=== PATIENT | male | born 1955 | race Caucasian/White ===

== ENCOUNTER 2016-12-09 08:23 | Inpatient (IN) | payer OTHER ==
[2016-12-09] VITALS (11 sets, daily range): BP systolic 98–133; BP diastolic 61–76; PULSE 56–88; RESP 11–20; O2SAT 97–100
[~2016-12-09] VITALS: Ht 182.9 cm; Wt 109.5 kg
[2016-12-09] MEDS: Lactated Ringer's 1,000 ML IV SCH ×3 (05:00→09:00)
[~2016-12-09 08:23] MED LIST: ARGI2000 PO; ASCO1TAB36 PO; ASPI-973 PO; Bupivacaine Liposome 1.3% 20 mL Inj INFILTRATE ONE; CHOL100045 PO; CeFAZolin Inj 2 GM in IV Premix 1 EACH IV ONE; DILT-17 PO; KRILL OIL PO; MAGN100T6 PO; MULT-1018 PO; SELE200T11 PO; SIMV20TA4 PO; TUMERIC PO; TUMERIC ROOT PO; VIT100TA PO; Vancomycin Inj 1,000 MG in IV Premix 1 EACH IV ONE; [UNRECOGNIZED DRUG - CODE] MC
[2016-12-09] MEDS ORDERED: Bupivacaine Liposome 1.3% 20 mL Inj ONE (10:25)
[2016-12-09] MEDS ORDERED: Dexamethasone 4 mg/mL Inj ONE (10:44)
[2016-12-09] MEDS ORDERED: Bupivacaine-MPF 0.75% 30 mL Inj ONE (10:44)
[2016-12-09] MEDS ORDERED: MetoCLOpramide 5 mg/mL 2 mL Inj ONE (10:44)
[2016-12-09] MEDS ORDERED: Ketamine 10 mg/mL 20 mL Inj ONE (10:44)
[2016-12-09] MEDS ORDERED: Lactated Ringer's 500 ML IV PRN (11:02)
[2016-12-09] MEDS ORDERED: Lactated Ringer's 1,000 ML IV SCH (11:02)
[2016-12-09] MEDS ORDERED: MetoCLOpramide 5 mg/mL 2 mL Inj IVPUSH PRN (11:05)
[2016-12-09] MEDS ORDERED: Dexamethasone 4 mg/mL Inj IVPUSH PRN (11:05)
[2016-12-09] MEDS ORDERED: EPHEDrine Sulfate 50 mg/mL Inj IVPUSH PRN (11:05)
[2016-12-09] MEDS ORDERED: Phenylephrine 10,000 mCg/mL Inj IVPUSH PRN (11:05)
[2016-12-09] MEDS ORDERED: HYDROmorphone 1 mg/mL Inj IVPUSH PRN ×2 (11:05→15:15)
[2016-12-09] MEDS ORDERED: Ondansetron 2 mg/mL 2 mL Inj IVPUSH PRN ×2 (11:05→13:15)
[2016-12-09] MEDS ORDERED: fentaNYL-PF 50 mCg/mL 2 mL Inj IVPUSH PRN (11:05)
[2016-12-09] MEDS ORDERED: Bupivacaine-MPF 0.5% W/EPI 30 mL Inj INFILTRATE ONE (12:30)
[2016-12-09] MEDS ORDERED: 0.9% Sodium Chloride 10 mL Inj INFILTRATE ONE (12:30)
[2016-12-09] MEDS ORDERED: Bupivacaine Liposome 1.3% 20 mL Inj INFILTRATE ONE (12:30)
[2016-12-09] MEDS ORDERED: Lactated Ringer's 1,000 ML IV ONE (13:02)
[2016-12-09] MEDS ORDERED: HYDROmorphone 2 mg/mL Inj IVPUSH PRN (13:15)
[2016-12-09] MEDS ORDERED: hydrOXYzine Pamoate 25 mg Capsule PO PRN (13:15)
[2016-12-09] MEDS ORDERED: Polyethylene Glycol (PEG) 17 Gm Powder PO PRN (13:15)
[2016-12-09] MEDS ORDERED: diphenhydrAMINE 25 mg Capsule PO PRN (13:15)
[2016-12-09] MEDS ORDERED: Acetaminophen IV 1,000 MG in IV Premix 1 EACH IV PRN (13:15)
[2016-12-09] MEDS ORDERED: Magnesium Hydroxide 10 mL Oral Concentration PO PRN (13:15)
--- NOTE | 2016-12-09 14:21 | DRSVH ---
PROCEDURE: X-RAY RIGHT KNEE, ONE OR TWO VIEWS ([id number]) INDICATIONS: post op TECHNIQUE: 2 views of the knee acquired. COMPARISON: [facility], CR, XR KNEE ARTHRITIC SERIES RT, 10/06/2016, 9:38. FINDINGS: Bones: Patient is status post knee joint arthroplasty. Hardware components are in expected position s with near-anatomic alignment. Visualized bony structures are intact. Soft tissues: Overlying postoperative changes are noted including joint effusion and gas as well sof t tissue edema and gas. IMPRESSION: 1. Expected postsurgical changes status post right knee arthroplasty. Dictated by: Mateusz Hercules M.D. on 12/09/2016 at 14:18 Approved by: Mateusz Hercules M.D. on 12/09/2016 at 14:19
--- NOTE | 2016-12-09 14:43 | PCM.ANEP1 ---
Post Anesthesia Phase 1 PACU Phase 1 Assessment Vital Signs Vital Signs Date Time Temp Pulse Resp B/P Pulse Ox O2 Delivery O2 Flow Rate FiO2 12/09/16 14:05 59 17 109/65 100 Room Air 12/09/16 14:01 59 19 105/61 100 Room Air 12/09/16 13:53 58 13 100/63 100 Room Air 12/09/16 13:40 56 12 98/71 100 Room Air 12/09/16 13:36 18 100 12/09/16 13:35 64 11 105/69 100 Room Air 12/09/16 13:30 36.3 64 13 100/64 100 Room Air 12/09/16 09:00 CPAP/BIPAP 12/09/16 09:00 36.1 65 18 133/72 99 Room Air Anesthetic Administered: Regional Block, SAB Level of Alertness: Awake, talking Pain: No Nausea or Vomiting: No Dermatome Level: L5,S1 (Foot) Artemio Preston MD Dec 09, 2016 14:43
--- NOTE | 2016-12-09 14:46 | PCM.HPANE ---
Patient Data Surgeon Admitting Provider: Attending Provider:Luc Cisse DO Primary Care Physician:Rukhsana Other Provider:Sharan Hidalgo Anesthesia Reason for Visit Right Knee Arthritis, Right Knee Mass RIGHT KNEE ARTHRITIS, RIGHT KNEE MASS Ht/WT & BMI Height (Feet): 6 Height (Inches): 0.00 Weight (Kilograms): 109.5 Body Mass Index 32.00 Allergies Coded Allergies: No Known Allergies (Unverified , 12/05/16) Past Anesthesia History Anesthesia History: Denies:: Anesthesia Reactions, Malignant Hyperthermia Diabetes History Hx Diabetes?: No MRSA MRSA: No Medications Blood Thinner: Aspirin Hypertension Medication: Yes (DILTIAZEM) Home Meds Incl Beta [place]: No Reported Medications Diltiazem ER 120 Mg Cap.er.[id number] Mg PO DAILY Ref 0 12/05/16 Cholecalciferol (Vitamin D3) (Vitamin D)1,000 Unit Capsule6,000 Unit PO DAILY # 1 BOTTLE Ref 0 12/05/16 Ubiquinol 500 Gm Tptaea355 Gm MC DIRECTED PRN HEALTH 12/05/16 [Tumeric/Tumeric Root] No Conflict Check2 Tablet PO DAILY 450MG/50MG 12/05/16 Simvastatin 20 Mg Hhtzqs65 Mg PO HS Ref 0 12/05/16 Selenomethionine (Selenium)200 Mcg Xqqtuv005 Mcg PO DAILY 12/05/16 Multivitamin (Multi Vitamin Daily)1 Each Tablet1 Each PO DAILY 30 Days Ref 0 12/05/16 Magnesium Citrate 100 Mg Jvtunf886 Mg PO DAILY 12/05/16 [Krill Oil] No Conflict Qvehc794 Mg PO DAILY 12/05/16 Ascorbate Calcium/Bioflavonoid (Anila-C 1,000 mg Tablet)1 Each Tablet1 Each PO DAILY ANILA-C W/ FLAVENOIDS 1000MG/200MG 12/05/16 Vit B Complex 100 Cmb #3/Herbs (Balanced B-100 Tablet)100 Mg Aycnlt103 Mg PO DAILY 12/05/16 Aspirin 81 Mg Llflhu08 Mg PO DAILY Ref 0 12/05/16 Arginine 2,000 Mg Powd.pack2,000 Mg PO DAILY 12/05/16 History History of ENT Problems?: Yes HEENT History: Positive for:: Hearing Problem Denture Type: None Teeth Condition: Within Normal Limits Other HEENT Pertinent History: S/P TONSILLECTOMY Hx of Heart Problems?: Yes Cardiovascular History: Positive for:: Atrial Fibrillation (HX OF TX W/ DILTIAZEM) Denies:: Heart Murmur Hypertension (HYPERLIPIDEMIA) Irregular Heartbeat (HX OF A FIB; CURRENTLY IN SINUS RHYTHM) Hx of Respiratory Problem?: Yes Respiratory History: Positive for:: Use of C-PAP Machine (FAWN+ W/ CPAP) Hx Neurologic Problems?: Yes Neurological History: Positive for:: Dizziness (HX OF BPPV) Hx of GI Problems?: No Gastrointestinal History: Positive for:: Heartburn Other GI Pertinent History: no Hx of Problems?: No Genitourinary History: Positive for:: Urinary Tract Infection HX of Peritoneal Dialysis: No Other Pertinent History: no Male Hx: Positive for:: Prostate Problems (BPH W/ HX OF ELEVATED PSA ( CURRENTLY 3.7 WNL) ) Denies:: Scrotal Mass Testicular Surgery Skin History: Positive for:: History Skin Disorders? (HX OF HIDRADENITIS & TINEA CURIS) Denies:: Pressure Ulcers Hx Musculoskeletal Problems?: Yes Musculoskeletal History: Positive for:: Degenerative Joint Osteoarthritis (RT KNEE W/ LOOSE JOINT BODIES=CURRENT PROBLEM) Hx of Psycho/Social Problems?: No Psycho Social History: Positive for:: Anxiety Hx Surgeries?: Yes (TONSILLECTOMY) Hx Any Other Health Problems?: Yes Other History: Denies:: Cancer Endocrine Disease Hospitalization Thyroid Disease History Blood Transfusions: Denies:: Blood Transfusions Hx Diabetes: No Hx Alcohol Use: YesAlcoholic Drinks Per Day: 1/DAYHave You Smoked inLast 12 mo : No Stop/Bang Treated for Sleep Apnea?: Yes Do You Have a CPAP Machine?: Yes S-Snoring: Do You Snore Loudly: Yes T-Tired: feel tired, fatigued: Yes O-Obsered: Observed not breath: Yes P-Blood Pressure: treated: No B- Body Mass Index > 35 kg/m2: No A- Age over 50: Yes N- Neck Large Circumference: Yes G- Gender Male: Yes FAWN Total Score: 6 FAWN Risk Assessment: High Risk, =/>3 Yes Risk Assessment Category Category 1A: Patient has history of documented sleep apnea, and HAS NOT received any narcotic, sedative or anesthesia administration during this stay. Category 1B: Patient has history of documented sleep apnea, and HAS received any narcotic , sedative or anesthesia administration during this stay Category 2: Patient has SUSPECTED Obstructive Sleep Apnea, and HAS received any narcotic , sedative or anesthesia administration during this stay. Category 3: Patient has SUSPECTED Obstructive Sleep Apnea and HAS NOT received narcotic, sedative or anesthesia administration during this stay. Category 4: Outpatient in Procedural Areas with known sleep apnea or who screen positive for High Risk via the STOP/BANG questionnaire. Exam Exam Vital Signs Vital Signs Date Time Temp Pulse Resp B/P Pulse Ox O2 Delivery O2 Flow Rate FiO2 12/09/16 14:05 59 17 109/65 100 Room Air 12/09/16 14:01 59 19 105/61 100 Room Air 12/09/16 13:53 58 13 100/63 100 Room Air 12/09/16 13:40 56 12 98/71 100 Room Air 12/09/16 13:36 18 100 12/09/16 13:35 64 11 105/69 100 Room Air 12/09/16 13:30 36.3 64 13 100/64 100 Room Air 12/09/16 09:00 CPAP/BIPAP 12/09/16 09:00 36.1 65 18 133/72 99 Room Air General Appearance: Oriented X3 HEENT/AIRWAY: MP 2 Lungs: Normal Air Movement Heart: Regular Rate/Rhythm Meds/Labs/Diagnostics Admission Meds Current Medications Lactated Ringer's 1,000 ml @ 120 mls/hr Q8H20M IV Last administered on 09:00; Start 12/09/16 at 05:00; Stop 12/09/16 at 13:19; Status DC Cefazolin Sodium/ Dextrose 2 gm/ Premix 50 ml @ 100 mls/hr PREOP ONCE IV Last administered on 12/09/16 10:58; Start 12/09/16 at 06:00; Stop 12/09/16 at 06:29; Status DC Vancomycin/0.9 % Sod Chloride 1000 mg/Premix 200 ml @ 133.333 mls/hr PREOP ONCE IV Last administered on 12/09/16 09:05; Start 12/09/16 at 06:00; Stop at 07:29; Status DC Tranexamic Acid/ Sodium Chloride (Cyklokapron Inj/ Normal Saline) 110 ml @ 660 mls/hr Q2H IV Last administered on 12/09/16 12:36; Start 12/09/16 at 06:00; Stop 12/09/16 at 08:09; Status DC Bupivacaine HCl (Exparel 1.3% Inj) 20 ml STK-MED ONCE INFILTRATE Last administered on 12/09/16 12:30; Start 12/09/16 at 12:30; Stop 12/09/16 at 11:42 ; Status DC Sodium Chloride (Normal Saline Inj) 20 ml STK-MED ONCE INFILTRATE Last administered on 12/09/16 12:30; Start 12/09/16 at 12:30; Stop 12/09/16 at 11:42 ; Status DC Bupivacaine HCl/ Epinephrine Bitart 30 ml 30 ml STK-MED ONCE INFILTRATE Last administered on 12/09/16 12:30; Start 12/09/16 at 12:30; Stop 12/09/16 at 11:42 ; Status DC Lactated Ringer's (Lr) 1,000 ml @ ud STK-MED ONCE IV Last administered on 12/09 13:02; Start 12/09/16 at 13:02; Stop 12/09/16 at 13:03; Status DC Plan Impression Patient chart reviewed, patient interviewed and anesthestic plan with risks, benefits, and alternatives discussed, and informed consent obtained. ASA Physical Status: ASA3 Severe Disease Anesthetic Plan: Regional Block, SAB Bene/Risks/Altern/Consents: Yes HP Complete Prior to Induction: Yes Artemio Preston MD Dec 09, 2016 14:46
[2016-12-09] MEDS: 0.9% Sodium Chloride 1,000 ML IV SCH ×2 (14:57→23:38)
--- NOTE | 2016-12-09 15:39 | OP ---
[address] [address] OPERATIVE REPORT PATIENT: KAILEY ALBARRAN : 1955 MR#: [id number] ADMIT: 12/09/2016 JOB ID: [id number] DATE OF SURGERY: 12/09/2016 PREOPERATIVE DIAGNOSIS(ES): Right knee degenerative joint disease. POSTOPERATIVE DIAGNOSIS(ES): Right knee degenerative joint disease with loose joint bodies. PROCEDURE: Right total knee arthroplasty with removal of loose joint bodies. SURGEON: Luc Cisse DO. MANIPULATIVE THERAPY SPECIALIST: Mimi Alaniz PA-C. A hand frame surgical elastic knitter was required for the successful completion of this procedure. INDICATIONS: The patient is a 61-year-old male with right knee severe degenerative arthritis who had failed conservative measures and wished to proceed with a total knee arthroplasty. He also had longstanding loose joint bodies which were bothersome to him and wished to have these removed at the same time. ANESTHESIA: Spinal. PROCEDURE IN DETAIL: Patient was brought to the operating room. He was given a preoperative antibiotic, 1 gram TXA preoperatively and spinal anesthetic. Surgical time-out was performed. The right knee was sterilely prepped and draped. A tourniquet was used for hemostasis. An incision was made longitudinally over the right anteromedial knee. Dissection was carefully carried through the subcutaneous tissue. Electrocautery was used for hemostasis. A split was then made in the quad tendon leaving cuff of tissue for repair. This was taken along the medial retinaculum and down onto the proximal medial tibial face. The patella was then everted and a small portion of the anterior horn medial meniscus as well as lateral meniscus and fat pad were removed. The loose joint bodies were then encountered and removed and sent to Pathology. There were a total of four loose joint bodies removed, the largest of which was about 5 or 6 cm in size. The femur was then instrumented with the intramedullary reamer and a 5 degree distal valgus cut angle was chosen with a 10 mm planned resection. The distal cutting guide was pinned into position and the cuts were performed and the femur was sized, felt to be a size 8. The tibia was then prepared with an extramedullary tibial cutting guide placed parallel to the long axis of the tibia. The tibial cut was performed, completed with an osteotome, and the cut surface was removed. The remainder of the medial lateral menisci were removed. The box cut was then performed with the box cutting guide and the femoral cuts were performed as well with the 3 degree external rotation guide. The knee was then trialed with the 8 femur, and I felt that a 7 tibia seemed to be good. Some additional medial release was performed. The patella was then resurfaced with a free hand type technique and then the knee was quite tight and so two additional millimeters of tibia were resected in order to facilitate exposure and some additional medial release was performed. We were then able to go to a size 7 thickness poly which allowed for full flexion, full extension with equal gaps medially and laterally. The tibia was prepared and upon preparation of the tibia I felt that the 7 was too small and decided to go with an 8 mobile bearing tibia, and a 8 femur. The femoral lugs were drilled. The bony surfaces were washed and dried, and the components were cemented into position beginning with the Depuy Attune RP 8 tibia followed by the Depuy Attune 8 femur, posterior stabilized, and a 7 mm thickness poly. A 41 mm patellar button was cemented into position. Had excellent tracking. All excess cement was removed. The tourniquet was then let down and the wound was copiously irrigated. Electrocautery was used for hemostasis and the wound was then closed with #1 Surgilon and 0 Vicryl to repair the capsule and quad tendon. The subcu was closed with 2-0 Vicryl and the skin was closed with a running subcuticular 3-0 V-Loc suture. A mixture of Exparel and Marcaine and saline was used as an adjunct local anesthetic. Sterile dressings were applied. Patient tolerated the procedure well. Blood loss was about 75 cc. POSTOPERATIVE PROTOCOL: Have the patient weightbear to tolerance. Use walker for ambulation and will plan to use Lovenox for DVT prophylaxis. He was given a prescription for [place] 7.5/325 for pain.
[2016-12-09] MEDS: Sodium Chloride LOK Flush 10 mL Syringe IV SCH ×2 (16:56→23:39)
--- NOTE | 2016-12-09 19:33 | NUR ---
Post op Pt arrived on OSC in bed at 1455, Bustillos in place, right leg in chato wrap, toes warm to touch, no complaints of pain or nausea. pt able to work with PT this evening. see post op assessment, care continued.
[2016-12-09] MEDS: CeFAZolin Inj 2 GM in IV Premix 1 EACH IV SCH (20:21)
[2016-12-09] MEDS: Senna-Docusate 8.6-50 mg Tablet PO SCH (20:22)
[2016-12-09] MEDS: Diltiazem CD 120 mg ER24 Capsule PO SCH (22:12)
[2016-12-09] MEDS: HYDROcodone-APAP 7.5-325 mg Tablet PO PRN (22:12)
[2016-12-10 00:22] VITALS: BP 96/60; PULSE 60; RESP 20; O2SAT 97
[2016-12-10] MEDS: CeFAZolin Inj 2 GM in IV Premix 1 EACH IV SCH (03:50)
[2016-12-10] MEDS: HYDROcodone-APAP 7.5-325 mg Tablet PO PRN ×4 (03:58→20:45)
--- NOTE | 2016-12-10 04:51 | NUR ---
PAIN Patient began complaining of mild pain to affected leg around bed time. Given one hydrocodone 7.5 and patient was able to sleep most of the night. One more dose given over night. Ortho checks WNL. Will continue to monitor.
[2016-12-10 05:25] VITALS: BP 101/61; PULSE 60; RESP 18; O2SAT 99
--- NOTE | 2016-12-10 06:32 | PCM.PNORTH ---
Subjective Date of Service: Dec 10, 2016 Visit Information: Reason for Visit Right Knee Arthritis, Right Knee Mass Surgery/Surgery Date RIGHT TOTAL KNEE 12/09/16 Post-Op Day # Date of Admission: Dec 09, 2016 at 14:44 Hospital Day # Subjective Found patient awake alert this morning and will position in bed. No complaints pain at this time. Discussed participation with formal therapy and advised patient of discharge on postop day #2. Patient has been to the total joint class and has made appropriate arrangements for return to home. Patient has participated with formal physical therapy on day is off to a good start with no anticipated problems. Postop General: No Complaints, No Shortness of Breath, No Chest Pain Pain Management: PO Objective Exam Objective Alert and oriented 3 and pleasant. Interoperative dressing is clean dry and intact. Toe wiggle and sensation are intact at right lower extremity distally. Calf and thigh are soft and nontender. SCDs are in place. Bustillos is absent Gait 20 feet with physical therapy on operative day. Vital Signs and I/O Vital Sign - Last Date Time Temp Pulse Resp B/P Pulse Ox O2 Delivery O2 Flow Rate FiO2 12/10/16 05:25 36.4 60 18 101/61 99 CPAP Intake and Output 12/09/16 12/09/16 12/10/16 Cumulative From/Thru 15:00 23:00 07:00 12/05/16 08:44 - 12/10/16 03:52 Intake Total 1570 ml 520 ml 1266 ml 3356 ml Output Total 1025 ml 1650 ml 2675 ml Balance 545 ml -1130 ml 1266 ml 681 ml Intake Oral 520 ml 520 ml IV Total 1570 ml 1266 ml 2836 ml Output Urine Total 950 ml 1650 ml 2600 ml Estimated Blood Loss 75 ml 75 ml # Bowel Movements 0 0 General Appearance: Alert, Oriented X3, Cooperative, No Acute Distress Extremities: No Compartment Syndrom Noted, Thigh & Calf Soft/Nontender Postop Sensory Motor: Distal Motor Intact, Movement in Toes, Distal Sensation Intact Activity: Activity per PT, Ambulate with PT (weightbearing as tolerated on the right lower extremity using front wheeled walker.) Catheters: None Assessment & Plan Impression Patient is a 61-year-old male who is postop day #1 from a right total knee arthroplasty performed on 12/09/2016. He has performed day 20 feet with formal physical therapy on op day and has attended the total joint class and is positive about his mobility and progression for recovery. Problems: Plan Postop day #1 from right total knee arthroplasty with excision of loose bodies on 12/09/[address] Luc Cisse. Weightbearing as tolerated on the right lower extremity using a front wheeled walker. Continue formal physical therapy for mobility, gait and safety. Continue by mouth pain medications in the form of [place] 7.5 mg and Vistaril 25 mg for postoperative pain. Please avoid IV pain medications if possible. Lovenox 40 mg subcutaneous daily 2 weeks postop with transition to ASA 325 mg EC by mouth twice a day times additional 4 weeks postop totaling 6 weeks postoperative DVT prophylaxis. Interoperative dressing will be changed postop dressing on postop day 2. Nursing please fit patient with bilateral thigh-high YARI hose as ordered today. Right YARI hose may be applied on postop day 2 after bandage is changed. Follow-up in 2 weeks at [facility] orthopedic clinic on prearranged appointment with mid-level provider for wound check and suture removal. Follow up in 6 weeks at [facility] orthopedic clinic on prearranged appointment with Dr. Luc Huang with right 2 view knee x-rays on arrival. Anticipate discharge to home with family as caregiver on postop day #2, 2016. VTE Prophylaxis: Sub-Q Enoxaparin (Lovenox 40 mg subcutaneous daily 2 weeks postop with transition to ASA 325 mg EC by mouth twice a day for an additional 4 weeks postop totaling 6 weeks postoperative DVT prophylaxis.), SCDs Pietro Correa PA-C Dec 10, 2016 06:32
[2016-12-10 06:35] LABS: BASOPHILS % (AUTO) 0 % (0-3); EOSINOPHILS % (AUTO) 0 % (0-5); MONOCYTES % (AUTO) 9.4 % (4-12); Mean Corpuscular Volume 82.4 fL (81-100); NEUTROPHILS % (AUTO) 85.2 % (40-74); Platelet Count 176 bil/L (150-400)
[2016-12-10] MEDS ORDERED: [UNRECOGNIZED DRUG - OTHER] PO SCH (08:30)
[2016-12-10] MEDS ORDERED: HERBS PO SCH (08:30)
[2016-12-10] MEDS ORDERED: ARGININE PO SCH (08:30)
[2016-12-10] MEDS ORDERED: [UNRECOGNIZED DRUG - OTHER] PO SCH (08:30)
[2016-12-10] MEDS ORDERED: VIT B COMPLEX PO SCH (08:30)
[2016-12-10] MEDS ORDERED: BIOFLAVONOID PO SCH (08:30)
[2016-12-10] MEDS ORDERED: ASCORBATE CALCIUM PO SCH (08:30)
[2016-12-10] MEDS ORDERED: SELENOMETHIONINE 200 MCG PO SCH (08:30)
[2016-12-10] MEDS: Ketorolac 15 mg/mL Inj IVPUSH PRN ×3 (08:39→20:46)
[2016-12-10] MEDS: Sodium Chloride LOK Flush 10 mL Syringe IV SCH ×2 (08:39→18:10)
[2016-12-10] MEDS: Senna-Docusate 8.6-50 mg Tablet PO SCH ×2 (08:39→20:18)
[2016-12-10 08:51] VITALS: BP 111/72; PULSE 71; RESP 18; O2SAT 97
[2016-12-10] MEDS: 0.9% Sodium Chloride 1,000 ML IV SCH ×2 (09:13→19:13)
--- NOTE | 2016-12-10 11:54 | NUR ---
Social Work-screening/readiness for discharge: Data:EMR Reviewed. Pt is a 61 y/o male who was admitted on 12/09/16 for right knee per H&P. Pt's insurance is [employer] and PCP is Dr. Deutsch in [place]. Pt's readmission score is 2. SW met with pt at bedside to discuss discharge planning, SW Role explained. Pt is alert and oriented x3. Pt resides at home with his in [place] where he remains independent with ADLS. Pt has fww for home use and normally drives. SW discussed DPOA/advanced directive, pt confirms he has completed this. PT has seen pt and cleared for home with outpt PT services. Pt confirms he has outpt PT already set up. Pt's to provide transport home at discharge. No anticipated discharge needs. SW provided phone number and plan on white board in room. SW will continue to follow if needs arise. Assessment:Pt who is independent at baseline. Plan;Pt to discharge home when medically stable via POV. PT has been cleared for home with outpt PT services. No anticipated discharge needs. SW will continue to follow if needs arise. Cindy Jenkins,SPEECH THERAPY TEACHER
[2016-12-10 15:53] VITALS: BP 109/68; PULSE 69; RESP 20; O2SAT 96
--- NOTE | 2016-12-10 15:56 | NUR ---
Evaluation completed. Please go to "Notes" then click on "Assessments and Notes" (bottom left corner of screen). Then select appropriate discipline tab on top of screen.
--- NOTE | 2016-12-10 16:55 | PCM.DIORTH ---
Ortho Discharge Instruction Date of Service: Dec 11, 2016 Dates of Hospitalization Date of Hospital Admission Dec 09, 2016 at 14:44 Providers Admitting Physician: Luc Cisse DO Primary Care Physician: Rukhsana Attending Physician: Luc Cisse DO Diet Discharge Diet: No restrictions Activity Discharge Activity-General: Balance rest and activity, Elevate & ice extremity Right Lower Extremity: Weight Bearing as tolerated Discharge Assist Device: Front Wheeled Walker Dressing and Incisional Care Discharge Dressing Care: Keep dressing clean, dry & intact, Other (leave Steri- Strips in place until 2 week postop visit) Discharge Hygiene: May shower (see instructions below), DO NOT soak incision under water, NO bathtub, hot tub or whirlpool Additional Instructions Discharge Instructions Ice the knee 6-8 times a day for 20-30 minutes at a time Every hour of the day that you are awake, get up and walk or do some of the exercises. Gradually increase each day Push yourself with bending and straightening the knee. It will hurt but you need to push yourself. Every afternoon lay down with the leg up on pillows above the level of the heart to help decrease swelling. Do not place a pillow under the knee, only under the calf or ankle. Continue wearing thigh-high compression stockings for 3-4 weeks On Thursday, the patient may shower if the wound has no drainage present. Wound may be uncovered to shower. Let soap and water run over the wound, pat dry and apply a new dressing. Follow Up Plan Follow Up Plan Follow-up at [facility] in 2 weeks with [place] for wound check, and at [address] Cisse with x-ray Call your provider for: Fever, Chills, Shortness of breath, Vomitting, Drainage at incision (excessive), Wound redness Mimi Alaniz PA-C Dec 10, 2016 16:55
--- NOTE | 2016-12-10 19:00 | NUR ---
Pain/activity Pt pain well controlled with current pain medications. Pt up with PT walked in kunz, sat in chair for a couple hours this afternoon.
[2016-12-10 20:07] VITALS: BP 126/71; PULSE 81; RESP 18; O2SAT 96
[2016-12-10] MEDS: Diltiazem CD 120 mg ER24 Capsule PO SCH (20:19)
[2016-12-11] MEDS: Sodium Chloride LOK Flush 10 mL Syringe IV SCH (00:30)
--- NOTE | 2016-12-11 02:26 | NUR ---
Activity/Pain Patient states pain at a 2/10 on pain scale. Patient able to move right toes/feet. Patient stated that he ambulated well today with and after physical therapy. No complaints or needs at this time. Toradol administered . Call light within reach. Care continues.
[2016-12-11] MEDS: 0.9% Sodium Chloride 1,000 ML IV SCH (05:13)
[2016-12-11] MEDS: HYDROcodone-APAP 7.5-325 mg Tablet PO PRN ×2 (05:43→10:05)
[2016-12-11 06:18] LABS: BASOPHILS % (AUTO) 0.5 % (0-3); EOSINOPHILS % (AUTO) 0.8 % (0-5); Mean Corpuscular Hemoglobin 26.5 pg (27.0-35.0); Mean Corpuscular Volume 83.6 fL (81-100); NEUTROPHILS % (AUTO) 72.2 % (40-74); Platelet Count 178 bil/L (150-400)
[2016-12-11] MEDS: Ketorolac 15 mg/mL Inj IVPUSH PRN (06:39)
--- NOTE | 2016-12-11 07:45 | PCM.PNORTH ---
Subjective Date of Service: Dec 11, 2016 Visit Information: Reason for Visit Right Knee Arthritis, Right Knee Mass Surgery/Surgery Date RIGHT TOTAL KNEE 12/09/16 Post-Op Day # 2 Date of Admission: Dec 09, 2016 at 14:44 Hospital Day # Subjective Patient states he is doing quite well. He is not having very much pain. He is anxious to go home. Postop General: No Complaints, No Shortness of Breath, No Chest Pain, Good Appetite Pain Management: PO Objective Exam Objective Patient is seen sitting up in a chair. His is also in the room. Vital Signs and I/O Vital Sign - Last Date Time Temp Pulse Resp B/P Pulse Ox O2 Delivery O2 Flow Rate FiO2 12/10/16 20:07 36.8 81 18 126/71 96 Room Air Intake and Output 12/10/16 12/10/16 12/11/16 Cumulative From/Thru 15:00 23:00 07:00 12/05/16 08:44 - 12/11/16 06:25 Intake Total 400 ml 1070 ml 400 ml 5226 ml Output Total 1550 ml 600 ml 590 ml 5415 ml Balance -1150 ml 470 ml -190 ml -189 ml Intake Oral 400 ml 1070 ml 400 ml 2390 ml IV Total 2836 ml Output Urine Total 1550 ml 600 ml 590 ml 5340 ml Estimated Blood Loss 75 ml # Voids 3 3 # Bowel Movements 0 0 0 Lab & Micro Results Laboratory Tests Test 12/11/16 05:50 White Blood Count 10.6th/mm3 (3.8-10.1) Red Blood Count 4.52mil/mm3 (4.40-5.80) Hemoglobin 12.0g/dL (13.8-17.2) Hematocrit 37.8% (41.0-50.0) Mean Corpuscular Volume 83.6fL (81-100) Mean Corpuscular Hemoglobin 26.5pg (27.0-35.0) Mean Corpuscular Hemoglobin Concent 31.7% (32.0-37.0) Red Cell Distribution Width 15.0% (12.3-15.4) Platelet Count 178bil/L (150-400) Neutrophils (%) (Auto) 72.2% (40-74) Lymphocytes (%) (Auto) 15.1% (14-46) Monocytes (%) (Auto) 11.0% (4-12) Eosinophils (%) (Auto) 0.8% (0-5) Basophils (%) (Auto) 0.5% (0-3) Sodium Level 143mEq/L (134-144) Potassium Level 4.1mEq/L (3.5-5.2) Chloride Level 106mEq/L (97-108) Carbon Dioxide Level 24mmol/L (18-29) Blood Urea Nitrogen 15mg/dL (8-27) Creatinine 1.06mg/dL (0.76-1.27) Estimat Glomerular Filtration Rate 75mL/min (>59) Glucose Level 99mg/dL (60-99) Calcium Level 8.7mg/dL (8.5-10.1) Result Diagram: 12/11/1654912/11/16549 General Appearance: Alert, Oriented X3, Cooperative, No Acute Distress Extremities: Distal Pulses Palpable, No Compartment Syndrom Noted, Thigh & Calf Soft/Nontender Postop Sensory Motor: Distal Motor Intact, NVI Distally SURGICAL WOUND : Wound Location/Description Right knee: Surgical dressing is removed. Steri-Strips are intact. There is very slight dried serous drainage. The wound is cleansed with hydrogen peroxide area wound is covered with Silverlon and ABD and thigh-high YARI hose are applied. Activity: Activity per PT, Ambulate with PT (weightbearing as tolerated on the right lower extremity using front wheeled walker.) Catheters: None Assessment & Plan Impression Status post right TKA POD #2 Problems: Plan Weightbearing: Weightbearing as tolerated with walker DVT prophylaxis: Lovenox 40 mg subcutaneous 2 weeks followed by aspirin 325 mg twice a day 4 weeks Physical therapy for transfers, progressive ambulation, therapeutic exercise Wound care: Dressing change by PA today with Silverlon, ABD and thigh high YARI hose Discharge plan: Discharge home today. Start outpatient physical therapy next week Discharge instructions are reviewed with the patient and his Follow-up plan: In 2 weeks at [facility] with PA for wound check and at [address] Cisse with x-rays Pain Management: [place], Toradol VTE Prophylaxis: Sub-Q Enoxaparin (Lovenox 40 mg subcutaneous daily 2 weeks postop with transition to ASA 325 mg EC by mouth twice a day for an additional 4 weeks postop totaling 6 weeks postoperative DVT prophylaxis.), SCDs Resuscitation Status: CPR: Attempt Resuscitation Mimi Alaniz PA-C Dec 11, 2016 07:45
[2016-12-11 07:58] VITALS: BP 117/55; PULSE 77; RESP 16; O2SAT 94
[2016-12-11] MEDS ORDERED: ENOX40DI8 SUBQ (09:52)
[2016-12-11] MEDS ORDERED: Hydrocodone/Acetaminophen PO (09:52)
--- NOTE | 2016-12-11 09:59 | PCM.DC.ORT ---
Discharge Summary Date of Service: Dec 11, 2016 Date of Hospital Admission: Dec 09, 2016 at 14:44 Date of Surgery: Dec 09, 2016 Date of Discharge: Dec 11, 2016 Reason for Hospitalization: Right knee arthritis and loose bodies Procedures Performed: Right total knee arthroplasty and removal of loose bodies Hospital Course: The patient was admitted to the hospital on 12/09/2016 and underwent the above procedure. Antibiotic prophylaxis consisting of Ancef and vancomycin. The surgeon was Dr. Cisse. A Bustillos was placed perioperatively. Patient tolerated the procedure well and was transferred to recovery room in stable condition. Bustlilos was discontinued on postop day 1. Patient had physical therapy to work on ambulation and transfers. Weightbearing as tolerated with walker. Pain was managed with Dilaudid, Toradol. DVT prophylaxis: Lovenox 40 mg SQ, SCDs and thigh-high YARI hose. Patient progressed well with physical therapy and on POD-2 was discharged home. Follow-up: at [facility] 2 weeks postop for wound check and at [address] Cisse with x-ray Diagnosis at Time of Discharge Status post right total knee arthroplasty and removal of loose bodies Problems: Disposition: Discharged home in stable condition with his to assist in his care Additional Information [facility] in 2 weeks with PA for wound check, and at [address] Cisse with x-ray Discharge Instructions: Ice the knee 6-8 times a day for 20-30 minutes at a time Every hour of the day that you are awake, get up and walk or do some of the exercises. Gradually increase each day Push yourself with bending and straightening the knee. It will hurt but you need to push yourself. Every afternoon lay down with the leg up on pillows above the level of the heart to help decrease swelling. Continue wearing thigh-high compression stockings for 3-4 weeks Do not rest with a pillow under the knee. Always place a pillow under the calf or foot to help with knee extension. You are given a handout today with some basic beginning home exercises following the surgery. Start doing them 3-4 times a day. On Thursday, the patient may shower if the wound has no drainage present. Wound may be uncovered to shower. Let soap and water run over the wound, pat dry and apply a new dressing. ([Hydrocodone/Acetaminophen]) 1 TABLET TABLET 1-2 TABLET PO q4-6h PRN PRN For Moderate Pain Max 8 per day Arginine (Arginine) 2,000 Mg Powd.pack 2,000 MG PO DAILY Ascorbate Calcium/Bioflavonoid (Anila-C 1,000 mg Tablet) 1 Each Tablet 1 EACH PO DAILY ANILA-C W/ FLAVENOIDS 1000MG/200MG Cholecalciferol (Vitamin D3) (Vitamin D) 1,000 Unit Capsule 6,000 UNIT PO DAILY Diltiazem ER (Diltiazem ER) 120 Mg Cap.er.24h 120 MG PO DAILY Enoxaparin Sodium (Enoxaparin Sodium) 40 Mg/0.4 Ml Syringe 40 MG SUBQ Q24 Magnesium Citrate (Magnesium Citrate) 100 Mg Tablet 300 MG PO DAILY Multivitamin (Multi Vitamin Daily) 1 Each Tablet 1 EACH PO DAILY Selenomethionine (Selenium) 200 Mcg Tablet 200 MCG PO DAILY Simvastatin (Simvastatin) 20 Mg Tablet 20 MG PO HS Ubiquinol (Ubiquinol) 500 Gm Powder 500 GM MC DIRECTED PRN PRN HEALTH Vit B Complex 100 Cmb #3/Herbs (Balanced B-100 Tablet) 100 Mg Tablet 100 MG PO DAILY Mimi Alaniz PA-C Dec 11, 2016 09:59
--- NOTE | 2016-12-11 10:45 | NUR ---
DISCHARGE Hydrocodone/APAP 1 tab PO has been effective for pain control. Tolerating liquids PO and his diet well. Denies nausea. No emesis noted. Denies SOB. Patient has been ambulating with SBA in the room and in the hallway. Tolerating it well. Mane hose are on. Dressing is CDI. Dressing was changed by PA prior to D/C. IV saline lock d/cd. Discharge instructions, care notes and prescription was given to the patient and he verbalized understanding. Discharged to home with his and all his personal belongings. (Copy of D/C is in the chart).
--- NOTE | 2016-12-15 11:35 | PATH ---
SURGICAL PATHOLOGY Attending Physician:Luc Cisse DO CASE STATUS: Signed Out PATIENT NAME: KAILEY ALBARRAN PID: [id number] : 1955 DATE COLLECTED:12/09/2016 00:00 SPECIMEN: Bone, Biopsy CLINICAL HISTORY: RIGHT KNEE MASS, RIGHT KNEE ARTHRITIS 1). RIGHT KNEE LOOSE BODIES FINAL DIAGNOSIS: 1.RIGHT KNEE LOOSE BODIES: OSTEOCARTILAGINOUS LOOSE BODIES, PARTIALLY NECROTIC. IDC10 CODE M17.11 GROSS DESCRIPTION: The specimen is received in formalin, labeled with the patient's name, sublabeled as right knee loose bodies and consists of solid hard nodules (10.8 x 5.3 x 1.5 cm in aggregate, ranging 1.9 x 1.5 x 0.9 cm-5.7 x 4.0 x 1.5 cm). The 2 smallest nodules are tobar-yellow and are easily sliced with a scalpel. The cut surfaces are tobar-yellow friable and homogenous. The remaining 2 nodules cannot be sliced with a scalpel and have a tobar-white cut surface with an debbie rimmed chalky core. Section code: (A) smallest 2 nodules, serially sectioned, customer engagement representative; (B, C) largest 2 nodules, serially sectioned, customer engagement representative. Note: The sections have been decalcified. 12/11/16 JM MICRO DESCRIPTION: See diagnosis. ICD-9 CODES: CPT CODES: 1: 40920, 45472 Electronically Signed Out Joo Husain MD [facility] Pathology [facility] [address], [place] [address] Technical component performed at [facility], [address] [place] [address] Ave[address], [place], [address]
== END 2016-12-11 10:45 | disposition home or self-care (01) | DRG 470 ==
LOC: SAS 08:23 → OSC 14:44
PROVIDERS: ADMIT Orthopaedic Surgery; ATTEND Orthopaedic Surgery
PROC: 0SCC0ZZ Extirpation of Matter from Right Knee Joint, Open Approach (ICD-10-PCS; 2016-12-09)
PROC: 0SRC0J9 Replacement of Right Knee Joint with Synthetic Substitute, Cemented, Open Approach (ICD-10-PCS; principal; 2016-12-09 10:45)
DX: M17.11 Unilateral primary osteoarthritis, right knee (principal); Z79.82 Long term (current) use of aspirin; I48.91 Unspecified atrial fibrillation; M23.41 Loose body in knee, right knee